=== PATIENT | female | born 1990 | race Caucasian/White ===

== ENCOUNTER 2017-09-09 09:11 | Emergency (ER) | payer SELFPAY ==
--- NOTE | 2017-09-09 09:36 | ER Document Report ---
HPI - HPI Patient complains to provider of: persistant throat pain Onset: Other - 3-1 Onset/Duration: Persistent Quality of pain: Achy, Sharp Pain Level: 4 Context: 27 yo female c/o persistant throat pain, dx strept 3-1 taking amoxicillin. Increased pain right tonsil radiating into the right ear. Still feels bad. Associated Symptoms: None Exacerbated by: Other - swallowing Relieved by: Denies Similar symptoms previously: No Recently seen / treated by doctor: No - ROS ROS below otherwise negative: Yes Systems Reviewed and Negative: Yes All other systems reviewed and negative Past Medical History - General Information source: Patient - Social History Smoking Status: Never Smoker Frequency of alcohol use: None Drug Abuse: None Lives with: Spouse/Significant other Family History: Reviewed & Not Pertinent - Medical History Medical History: Negative Surgical Hx: Negative Vertical Provider Document - CONSTITUTIONAL Agree With Documented VS: Yes Exam Limitations: No Limitations General Appearance: No Apparent Distress - INFECTION CONTROL TRAVEL OUTSIDE OF THE [place] IN LAST 30 DAYS: No - HEENT HEENT: Normocephalic, Pharyngeal Erythema - right tonsil with exudate. negative : Tympanic Membrane Red, Tympanic Membrane Bulging - NECK Neck: Supple, Lymphadenopathy-Left - ant, Lymphadenopathy-Right - ant - RESPIRATORY Respiratory: Breath Sounds Normal, No Respiratory Distress O2 Sat by Pulse Oximetry: 100 - CARDIOVASCULAR Cardiovascular: Regular Rate, Regular Rhythm - GI/ABDOMEN Gastrointestinal: Abdomen Soft, Abdomen Non-Tender, No Organomegaly - MUSCULOSKELETAL/EXTREMETIES Musculoskeletal/Extremeties: MAEW - NEURO Level of Consciousness: Awake, Alert - DERM Integumentary: Warm, Dry, No Rash Course - Re-evaluation Re-evalutation: 09/09/17 10:26 Patient requesting a CBC and a metabolic panel. Since she has been sick for 3 weeks she really wants to make sure everything is okay. 09/09/17 11:52 Lab work is negative. Rapid strep is negative, Monospot is negative CBC in chemistry is normal. - Vital Signs Vital signs: Temp Pulse Resp BP Pulse Ox 98.3 F 111 H 18 136/92 H 100 09/09/17 09:21 09/09/17 09:21 09/09/17 09:21 09/09/17 09:21 09/09/17 09:21 - Laboratory Result Diagrams: 09/09/17 10:40 09/09/17 10:40 Discharge - Discharge Clinical Impression: Persistent tonsillitis Condition: Good Disposition: HOME, SELF-CARE Instructions: Clindamycin ([facility]), Sore Throat ([facility]), Tonsillitis ([facility]) Additional Instructions: Plenty of fluids Rest Tylenol Motrin Stop the amoxicillin Clindamycin Throat culture is pending and will be resulted in 48 hours Return to the emergency room if worse Prescriptions: Clindamycin HCl [Cleocin 150 mg Capsule] 300 mg PO TID #42 capsule
[2017-09-09 10:53] LABS: ABSOLUTE BASOPHILS # (AUTO) 0.1 10^3/uL (0.0-0.2); ABSOLUTE EOSINOPHILS # (AUTO) 0.1 10^3/uL (0.0-0.6); ABSOLUTE LYMPHOCYTES (AUTO) 2.4 10^3/uL (0.5-4.7); ABSOLUTE MONOCYTES (AUTO) 1.1 10^3/uL (0.1-1.4); ABSOLUTE NEUT (AUTO) 6.9 10^3/uL (1.7-8.2); BASOPHILS % (AUTO) 0.8 % (0-2); EOSINOPHILS % (AUTO) 0.6 % (0-6); HEMATOCRIT 41.1 % (36.0-47.0); LYMPHOCYTES % (AUTO) 22.5 % (13-45); MEAN CORPUSCULAR HEMOGLOBIN 29.4 pg (27.0-33.4); MEAN CORPUSCULAR HGB CONC 34.1 g/dL (32.0-36.0); MEAN CORPUSCULAR VOLUME 86 fl (80-97); MONOCYTES % (AUTO) 10.9 % (3-13); PLATELET COUNT 359 10^3/uL (150-450); RED BLOOD COUNT 4.76 10^6/uL (3.72-5.28); RED CELL DISTRIBUTION WIDTH 14.2 % (11.5-14.0); SEGMENTED NEUTROPHILS % (AUTO) 65.2 % (42-78); TOTAL CELLS COUNTED % (AUTO) 100 %; WHITE BLOOD COUNT 10.6 10^3/uL (4.0-10.5)
[2017-09-09 11:10] LABS: ALANINE AMINOTRANSFERASE 38 U/L (9-52); ALBUMIN 4.4 g/dL (3.5-5.0); ALKALINE PHOSPHATASE 78 U/L (38-126); ANION GAP 14 (5-19); ASPARTATE AMINO TRANSFERASE 22 U/L (14-36); BILIRUBIN,DIRECT 0.3 mg/dL (0.0-0.4); BILIRUBIN,TOTAL 0.3 mg/dL (0.2-1.3); BLOOD UREA NITROGEN 12 mg/dL (7-20); CALCIUM 10.2 mg/dL (8.4-10.2); CARBON DIOXIDE 23 mmol/L (22-30); CHLORIDE 105 mmol/L (98-107); GLUCOSE 90 mg/dL (75-110); SODIUM 141.8 mmol/L (137-145); TOTAL PROTEIN 7.8 g/dL (6.3-8.2)
[2017-09-09 12:26] VITALS: BP 130/93
== END 2017-09-09 12:24 | disposition home or self-care (01) ==
LOC: ER 09:11
DX: J03.90 Acute tonsillitis, unspecified (principal); R07.0 Pain in throat; H92.01 Otalgia, right ear
CPT/HCPCS: 36415; 80053; 85025; 86308; 87070; 87880; 99283

== ENCOUNTER 2017-10-16 20:24 | Emergency (ER) | payer MEDICAID ==
[2017-10-16] MEDS ORDERED: ACETAMINOPHEN 325 MG TABLET PO ONE (21:34)
[2017-10-16] MEDS ORDERED: NORMAL SALINE 1000 ML 1,000 ML IV ONE (21:34)
--- NOTE | 2017-10-16 21:36 | ER Document Report ---
ED GI/ - General Chief Complaint: Abdominal Pain Stated Complaint: ABDOMIANL PAIN Mode of Arrival: Ambulatory Information source: Patient Notes: Patient is currently 10 weeks presenting with right lower quadrant pelvic pain off and on for the past 2 months. Patient states yesterday that the pain became constant. Patient does report nausea with urinary frequency. Patient denies any vomiting or diarrhea. Patient states that her pelvic pain is worse with activities. Patient denies any vaginal bleeding or discharge. Patient denies any concerns about sexually transmitted infections. Patient is currently followed by the health department. TRAVEL OUTSIDE OF THE [place] IN LAST 30 DAYS: No - HPI Patient complains to provider of: Pelvic pain, . No: Vomiting Onset: Other - 2 months Timing/Duration: Persistent Quality of pain: Achy Pain Level: 2 Location: Pelvis Vaginal bleeding (Compared to normal period): None Menstrual period history: Sexual history: Active Associated symptoms: Urinary frequency. denies: Diarrhea, Dysuria, Fever, Nausea, Urinary hesitancy, Vaginal discharge, Vomiting Exacerbated by: Movement Relieved by: Denies Similar symptoms previously: No Recently seen / treated by doctor: No - Related Data Allergies/Adverse Reactions: No Known Allergies Allergy (Unverified 09/09/17 09:11) Past Medical History - General Information source: Patient - Social History Smoking Status: Current Every Day Smoker Frequency of alcohol use: None Drug Abuse: None Occupation: None Lives with: Spouse/Significant other Family History: Reviewed & Not Pertinent Patient has suicidal ideation: No Patient has homicidal ideation: No - Past Medical History Cardiac Medical History: Reports: Hx Hypertension Renal/ Medical History: Denies: Hx Peritoneal Dialysis Surgical Hx: Negative Review of Systems - Review of Systems Constitutional: No symptoms reported. denies: Fever, Recent illness EENT: No symptoms reported Cardiovascular: No symptoms reported Respiratory: No symptoms reported. denies: Cough Gastrointestinal: Abdominal pain, Nausea, Constipation. denies: Diarrhea, Vomiting Genitourinary: Frequency. denies: Dysuria, Flank pain Female Genitourinary: . denies: Vaginal discharge, Vaginal bleeding Musculoskeletal: No symptoms reported. denies: Back pain Skin: No symptoms reported Hematologic/Lymphatic: No symptoms reported Neurological/Psychological: No symptoms reported Physical Exam - Vital signs Vitals: Temp Pulse Resp BP Pulse Ox 98.4 F 101 H 18 137/85 H 100 10/16/17 20:38 10/16/17 20:38 10/16/17 20:38 10/16/17 20:38 10/16/17 20:38 - General General appearance: Appears well, Alert In distress: None - HEENT Head: Normocephalic, Atraumatic Eyes: Normal Nasal: Normal Mouth/Lips: Normal Mucous membranes: Normal Neck: Normal, Supple. No: Lymphadenopathy - Respiratory Respiratory status: No respiratory distress Chest status: Nontender Breath sounds: Normal. No: Productive cough, Rales, Rhonchi, Stridor Chest palpation: Normal - Cardiovascular Rhythm: Tachycardia Heart sounds: S1 appreciated, S2 appreciated - Abdominal Inspection: Normal Distension: No distension Bowel sounds: Normal Tenderness: Tender - right lower pelvic - Genitourinary External exam: Normal Speculum exam: Normal Vaginal bleeding: None Bimanuel exam: Normal. No: Adnexal mass, Adnexal tenderness - Back Back: Normal, Nontender. No: CVA tenderness - Extremities General upper extremity: Normal inspection, Normal ROM General lower extremity: Normal inspection, Normal ROM - Neurological Neuro grossly intact: Yes Cognition: Normal [place] Coma Scale Eye Opening: Spontaneous [place] Coma Scale Verbal: Oriented [place] Coma Scale Motor: Obeys Commands Michael Coma Scale Total: 15 - Psychological Associated symptoms: Normal affect, Normal mood - Skin Skin Temperature: Warm Skin Moisture: Dry Skin Color: Normal Course - Re-evaluation Re-evalutation: 10/17/17 01:25 Patient continues with achy right lower pelvic pain at a 2 out of 5 scale. Patient with soft abdomen, no guarding. No peritoneal signs. Consulted with Dr. Levine regarding patient presentation and diagnostic evaluation. Low suspicion for appendicitis giving duration of pain symptoms for over 2 months. 10/17/17 01:45 Patient nontoxic in appearance. Discussed plan of care with patient, patient is agreeable with discharge at this time. Discussed worsening signs or symptoms that patient should return immediately for. Patient presents with abdominal pain without signs of peritonitis or other life-threatening or serious etiology. Patient appears stable for discharge and has been instructed to return immediately if the symptoms worsen in any way, or in 8-12 hours if not improved for reevaluation. The patient has been instructed to return if the symptoms worsen or change in any way. - Vital Signs Vital signs: Temp Pulse Resp BP Pulse Ox 98.1 F 117 H 20 132/71 H 100 10/17/17 02:00 10/17/17 02:00 10/17/17 02:00 10/17/17 02:00 10/17/17 02:00 - Laboratory Result Diagrams: 10/16/17 22:25 10/16/17 22:25 Laboratory results interpreted by me: 10/16/17 10/16/17 10/16/17 22:25 22:25 23:30 WBC 11.3 H Hct 35.2 L RDW 14.6 H Creatinine 0.39 L Total Bilirubin < 0.1 L Beta HCG, Quant 966108.00 H Urine Ketones 20 H Labs- Entire Visit 10/16/17 10/16/17 10/16/17 22:25 22:25 23:30 WBC 11.3 H RBC 4.05 Hgb 12.0 Hct 35.2 L MCV 87 MCH 29.8 MCHC 34.2 RDW 14.6 H Plt Count 322 Seg Neutrophils % 70.4 Lymphocytes % 22.2 Monocytes % 6.6 Eosinophils % 0.3 Basophils % 0.5 Absolute Neutrophils 8.0 Absolute Lymphocytes 2.5 Absolute Monocytes 0.7 Absolute Eosinophils 0.0 Absolute Basophils 0.1 Sodium 138.9 Potassium 3.6 Chloride 103 Carbon Dioxide 24 Anion Gap 12 BUN 7 Creatinine 0.39 L Est GFR ( Amer) > 60 Est GFR (Non-Af Amer) > 60 Glucose 85 Calcium 9.9 Total Bilirubin < 0.1 L Direct Bilirubin Neonat Total Bilirubin Not Reportable Neonat Direct Bilirubin Not Reportable Neonat Indirect Bili Not Reportable AST 19 ALT 25 Alkaline Phosphatase 50 Total Protein 6.8 Albumin 4.4 Beta HCG, Quant 180031.00 H Total Beta HCG POSITIVE Urine Color YELLOW Urine Appearance CLEAR Urine pH 5.0 Ur Specific [place] 1.017 Urine Protein NEGATIVE Urine Glucose (UA) NEGATIVE Urine Ketones 20 H Urine Blood NEGATIVE Urine Nitrite NEGATIVE Urine Bilirubin NEGATIVE Urine Urobilinogen NEGATIVE Ur Leukocyte Esterase NEGATIVE Urine WBC (Auto) 1 Urine RBC (Auto) 0 Urine Bacteria (Auto) TRACE Squamous Epi Cells Auto 1 Urine Mucus (Auto) RARE Urine Ascorbic Acid NEGATIVE Trichomonas (Wet Prep) Vaginal WBC Vaginal RBC Vaginal Yeast 10/17/17 01:06 WBC RBC Hgb Hct MCV MCH MCHC RDW Plt Count Seg Neutrophils % Lymphocytes % Monocytes % Eosinophils % Basophils % Absolute Neutrophils Absolute Lymphocytes Absolute Monocytes Absolute Eosinophils Absolute Basophils Sodium Potassium Chloride Carbon Dioxide Anion Gap BUN Creatinine Est GFR ( Amer) Est GFR (Non-Af Amer) Glucose Calcium Total Bilirubin Direct Bilirubin Neonat Total Bilirubin Neonat Direct Bilirubin Neonat Indirect Bili AST ALT Alkaline Phosphatase Total Protein Albumin Beta HCG, Quant Total Beta HCG Urine Color Urine Appearance Urine pH Ur Specific [place] Urine Protein Urine Glucose (UA) Urine Ketones Urine Blood Urine Nitrite Urine Bilirubin Urine Urobilinogen Ur Leukocyte Esterase Urine WBC (Auto) Urine RBC (Auto) Urine Bacteria (Auto) Squamous Epi Cells Auto Urine Mucus (Auto) Urine Ascorbic Acid Trichomonas (Wet Prep) NO TRICHOMONAS SEEN Vaginal WBC NO WBCS SEEN Vaginal RBC NO RBCS SEEN Vaginal Yeast NO YEAST SEEN - Diagnostic Test Radiology reviewed: Reports reviewed Discharge - Discharge Clinical Impression: Pelvic pain affecting Qualifiers: Trimester: first trimester Qualified Code(s): O26.891 - Other specified related conditions, first trimester Condition: Stable Disposition: HOME, SELF-CARE Instructions: Acetaminophen, Observation for Appendicitis ([facility]), Pelvic Pain in ([facility]) Additional Instructions: Return immediately for any new or worsening symptoms Followup with your primary care provider, call tomorrow to make a followup appointment Forms: Return to Work [facility] - Follow up as needed [facility] [Provider Group] - Follow up as needed
[2017-10-16 22:42] LABS: ABSOLUTE BASOPHILS # (AUTO) 0.1 10^3/uL (0.0-0.2); ABSOLUTE LYMPHOCYTES (AUTO) 2.5 10^3/uL (0.5-4.7); ABSOLUTE MONOCYTES (AUTO) 0.7 10^3/uL (0.1-1.4); BASOPHILS % (AUTO) 0.5 % (0-2); EOSINOPHILS % (AUTO) 0.3 % (0-6); HEMATOCRIT 35.2 % (36.0-47.0); LYMPHOCYTES % (AUTO) 22.2 % (13-45); MEAN CORPUSCULAR HEMOGLOBIN 29.8 pg (27.0-33.4); MEAN CORPUSCULAR HGB CONC 34.2 g/dL (32.0-36.0); MEAN CORPUSCULAR VOLUME 87 fl (80-97); MONOCYTES % (AUTO) 6.6 % (3-13); PLATELET COUNT 322 10^3/uL (150-450); RED BLOOD COUNT 4.05 10^6/uL (3.72-5.28); RED CELL DISTRIBUTION WIDTH 14.6 % (11.5-14.0); SEGMENTED NEUTROPHILS % (AUTO) 70.4 % (42-78); TOTAL CELLS COUNTED % (AUTO) 100 %; WHITE BLOOD COUNT 11.3 10^3/uL (4.0-10.5)
[2017-10-16 23:00] LABS: ALANINE AMINOTRANSFERASE 25 U/L (9-52); ALBUMIN 4.4 g/dL (3.5-5.0); ALKALINE PHOSPHATASE 50 U/L (38-126); ANION GAP 12 (5-19); ASPARTATE AMINO TRANSFERASE 19 U/L (14-36); BLOOD UREA NITROGEN 7 mg/dL (7-20); CALCIUM 9.9 mg/dL (8.4-10.2); CARBON DIOXIDE 24 mmol/L (22-30); CHLORIDE 103 mmol/L (98-107); GLUCOSE 85 mg/dL (75-110); POTASSIUM 3.6 mmol/L (3.6-5.0); SODIUM 138.9 mmol/L (137-145); TOTAL PROTEIN 6.8 g/dL (6.3-8.2)
--- NOTE | 2017-10-16 23:20 | RADIOLOGY REPORT (SQ) ---
EXAM DESCRIPTION: U/S OB TRANSVAGINAL W/O DOP CLINICAL HISTORY: 27 years, Female, RLQ pain COMPARISON: None. LIMITATIONS: None. FINDINGS: Intrauterine living fetus measures 9w2d with SINAN of 05/19/2018. [place]-rump length is 2.5 cm. Cardiac activity is 187 bpm. Cervical length is 3.1-cm. Ovarian fossae appear unremarkable. Ovaries are not directly visualized. IMPRESSION: Intrauterine living fetus measures 9w2d with SINAN of 05/19/2018.
[2017-10-16 23:23] LABS: BILIRUBIN,TOTAL < 0.1 mg/dL (0.2-1.3)
[2017-10-16 23:45] LABS: BILIRUBIN,URINE NEGATIVE (NEGATIVE); COLOR,URINE YELLOW; GLUCOSE, URINE NEGATIVE (NEGATIVE); KETONES,URINE 20 mg/dL (NEGATIVE); LEUKOCYTE ESTERASE,URINE NEGATIVE (NEGATIVE); NITRITE,URINE NEGATIVE (NEGATIVE); PROTEIN,URINE NEGATIVE (NEGATIVE); URINE SPECIFIC GRAVITY 1.017; UROBILINOGEN,URINE NEGATIVE mg/dL (<2.0)
[2017-10-16 23:46] LABS: APPEARANCE,URINE CLEAR
[2017-10-17 01:21] LABS: T.VAGINALIS (WET MOUNT) NO TRICHOMONAS SEEN; YEAST (WET MOUNT) NO YEAST SEEN
[2017-10-17 01:22] LABS: RBCS (WET MOUNT) NO RBCS SEEN; WBCS (WET MOUNT) NO WBCS SEEN
[2017-10-17 02:48] LABS: CHLAM PCR NOT DETECTED (NOT DETECT); GON PCR NOT DETECTED (NOT DETECT)
[2017-10-17 03:06] VITALS: BP 132/71
== END 2017-10-17 02:00 | disposition home or self-care (01) ==
LOC: ER 20:24
DX: O26.891 Other specified pregnancy related conditions, first trimester (principal); O16.1 Unspecified maternal hypertension, first trimester; R10.31 Right lower quadrant pain; R11.0 Nausea; R35.0 Frequency of micturition; R10.2 Pelvic and perineal pain; Z3A.10 10 weeks gestation of pregnancy; F17.200 Nicotine dependence, unspecified, uncomplicated
CPT/HCPCS: 99284; 36415; 87210; 84702; 85025; 80053; 81001; 87491; 87591; 76817; J3490

== ENCOUNTER 2017-11-05 18:40 | Emergency (ER) | payer MEDICAID ==
--- NOTE | 2017-11-05 19:36 | ER Document Report ---
HPI - HPI Pain Level: Denies Notes: Patient is a 27-year-old female with no significant past medical history states that she is who presents to the ED requesting hepatitis C testing as her partner tested positive [facility]. Patient states that she has otherwise been healthy without any other symptoms. She is eating and drinking without difficulties. She is urinating normally and having normal bowel movements. Denies any drug allergies. Denies any IV drug use. Denies any headache, fever, URI, sore throat, chest pain, palpitations, syncope, cough , shortness of breath, wheeze, dyspnea, abdominal pain, nausea/vomiting/diarrhea , urinary retention, dysuria, hematuria, or rash. - ROS Systems Reviewed and Negative: Yes All other systems reviewed and negative Past Medical History - Social History Smoking Status: Unknown if Ever Smoked Family History: Reviewed & Not Pertinent - Past Medical History Cardiac Medical History: Reports: Hx Hypertension Renal/ Medical History: Denies: Hx Peritoneal Dialysis Vertical Provider Document - CONSTITUTIONAL Agree With Documented VS: Yes Notes: PHYSICAL EXAMINATION: GENERAL: Well-appearing, well-nourished and in no acute distress. Pt has a very demanding attitude. HEAD: Atraumatic, normocephalic. EYES: Pupils equal round and reactive to light, extraocular movements intact, sclera anicteric, conjunctiva are normal. LUNGS: Breath sounds clear to auscultation bilaterally and equal. No wheezes rales or rhonchi. HEART: Regular rate and rhythm without murmurs, rubs, gallops. ABDOMEN: Soft, nontender, nondistended abdomen. No guarding, no rebound. No masses appreciated. Normal bowel sounds present. No CVA tenderness bilaterally. Extremities: No cyanosis, clubbing, or edema b/l. Peripheral pulses 2+. Capillary refill less than 3 seconds. NEUROLOGICAL: Normal speech, normal gait. Normal sensory, motor exams PSYCH: Normal mood, normal affect. SKIN: Warm, Dry, normal turgor, no rashes or lesions noted. - INFECTION CONTROL TRAVEL OUTSIDE OF THE [place] IN LAST 30 DAYS: No Course - Re-evaluation Re-evalutation: 11/05/17 19:33 Patient is an afebrile, well-hydrated, 27-year-old female who presents to the ED requesting hepatitis testing status post exposure. Vitals are acceptable. PE is otherwise unremarkable. Patient is otherwise asymptomatic. I did review this with Dr. Fung who agreed with me that we do not perform routine STD panel testing through the emergency department and that she will need to follow-up with the health department tomorrow. She is to refrain from any sexual intercourse until her results. Conservative measures otherwise for symptoms. Recheck with your PCM as well in 3-5 days. Notify her RANGE AIDE. Return to the ED with any worsening/concerning symptoms otherwise as reviewed discharge. Patient is in agreement. Discharge - Discharge Clinical Impression: Exposure to hepatitis C Condition: Stable Disposition: HOME, SELF-CARE Instructions: [facility] Additional Instructions: Push fluids (i.e. water, cranberry juice) Proper hygenic technique Keep the skin clean Safe sexual practices with condoms everytime Tylenol/ibuprofen as needed Check in with the health department this week for further testing tomorrow* Return immediately if symptoms worsen F/u with your PCM/OBGYN in 3-5 days for a recheck Return to the ED with any development of GUNTER/fever, trouble with vision, eye redness, worsening pain, urethral discharge, urinary retention, blood in the urine, flank pain, abdominal pain, n/v, Chest Pain, shortness of breath, joint pains, trouble breathing, or any other worsening/concerning symptoms as needed otherwise. Referrals: [facility] [NO LOCAL MD] - Follow up tomorrow
== END 2017-11-05 19:39 | disposition home or self-care (01) ==
LOC: ER 18:40
DX: Z20.5 Contact with and (suspected) exposure to viral hepatitis (principal); O26.91 Pregnancy related conditions, unspecified, first trimester; Z3A.00 Weeks of gestation of pregnancy not specified
CPT/HCPCS: 99283